=== PATIENT | female | born 1950 | race Two or more races ===

== ENCOUNTER 2019-06-03 04:03 | Emergency (ER) | payer SELFPAY ==
--- NOTE | 2019-06-03 04:21 | NUR ---
LUCILA FROM [facility] WHERE PT IS STAYING. PT BROUGHT IN FOR NOSE BLEED. UPON ARRIVAL PT REFUSES TO BE TRIAGED AND DOES NOT WANT TO STAY. SPOKE WITH PT SEVERAL TIME TO EXPALIN RISK AND BENEFITS BUT STILL INSISTS ON LEAVING. PT IS AAO4. NAD NOTED.
== END 2019-06-03 04:27 | disposition left against medical advice (07) ==
LOC: ER 04:03
DX: Z53.21 Procedure and treatment not carried out due to patient leaving prior to being seen by health care provider (principal)